=== PATIENT | female | born 1990 | race Caucasian/White ===

== ENCOUNTER → 2023-03-11 | Day surgery (SDC) | payer OTHER ==
[~2023-03-11] MED LIST: Rabies Vaccine Human 2.5 UNITS VIAL ONE
[2023-03-11 18:07] VITALS: BP 142/112; TEMP 97.8
== END ==
LOC: BUR/OP 10:33
PROVIDERS: ATTEND Emergency Medicine
DX: Z23 Encounter for immunization (principal)
CPT/HCPCS: 90471; 90675